=== PATIENT | male | born 1965 | race African-American/Black ===

== ENCOUNTER 2017-08-15 09:10 | Emergency (ER) | payer BC, OTHER | END 2017-08-15 10:28 | disposition home or self-care (01) | LOC: ER 09:10 | DX: M77.9 Enthesopathy, unspecified (principal); Z88.8 Allergy status to other drugs, medicaments and biological substances | CPT/HCPCS: 73610; 99284 ==

== ENCOUNTER 2018-05-17 19:50 | Emergency (ER) | payer BC, OTHER ==
[~2018-05-17] VITALS: Ht 180.3 cm; Wt 99.8 kg
[~2018-05-17 19:50] MED LIST: ACET325T9 PO; PRED20TA PO
[2018-05-17 20:27] VITALS: BP 163/88
[2018-05-17] MEDS ORDERED: ORPH100T PO (21:11)
[2018-05-17] MEDS ORDERED: IBUP-1007 PO (21:11)
--- NOTE | 2018-05-17 21:11 | PHYS DOC ---
Past Medical History Past Medical History: Hypertension Past Surgical History: Other Additional Past Surgical Histo: BILATERAL ANKLE FX, RT RADIAL NERVE, Alcohol Use: Rarely Drug Use: Marijuana Adult General Chief Complaint Chief Complaint: LOWER BACK PAIN OR INJURY HPI HPI Patient is a 53 year old male who presents with patient states yesterday he sneezed really hard and started having right lower back pain he rates a 5 out of 10. He states when he moves the pain is worse it is sharp shooting. It does not shoot down his leg but will radiate across his back times. He denies dysuria or fever or nausea or vomiting. Review of Systems Review of Systems Constitutional: Denies fever or chills [] Eyes: Denies change in visual acuity, redness, or eye pain [] HENT: Denies nasal congestion or sore throat [] Respiratory: Denies cough or shortness of breath [] Cardiovascular: No additional information not addressed in HPI [] GI: Denies abdominal pain, nausea, vomiting, bloody stools or diarrhea [] : Denies dysuria or hematuria [] Musculoskeletal: lower back pain or joint pain [] Integument: Denies rash or skin lesions [] Neurologic: Denies headache, focal weakness or sensory changes [] All other systems were reviewed and found to be within normal limits, except as documented in this note. Allergies Allergies Allergies Coded Allergies Type Severity Reaction Last Updated Verified amitriptyline Adverse Reaction Intermediate VISUAL DISTURBANCES 08/15/17 Yes pregabalin Adverse Reaction Intermediate BACK PAIN 08/15/17 Yes Physical Exam Physical Exam Constitutional: Well developed, well nourished, no acute distress, non-toxic appearance. [] HENT: Normocephalic, atraumatic, bilateral external ears normal, oropharynx moist, no oral exudates, nose normal. [] Eyes: PERRLA, EOMI, conjunctiva normal, no discharge. [] Neck: Normal range of motion, no tenderness, supple, no stridor. [] Cardiovascular:Heart rate regular rhythm, no murmur [] Lungs & Thorax: Bilateral breath sounds clear to auscultation [] Abdomen: Bowel sounds normal, soft, no tenderness, no masses, no pulsatile masses. [] Skin: Warm, dry, no erythema, no rash. [] Back: right lower tenderness, no CVA tenderness. [] Extremities: No tenderness, no cyanosis, no clubbing, ROM intact, no edema. [] Neurologic: Alert and oriented X 3, normal motor function, normal sensory function, no focal deficits noted. [] Psychologic: Affect normal, judgement normal, mood normal. [] Current Patient Data Vital Signs Vital Signs Date Time Temp Pulse Resp B/P (MAP) Pulse Ox O2 Delivery O2 Flow Rate FiO2 05/17/18 20:27 98.5 66 18 163/88 (113) 99 Room Air 98.5 EKG EKG [] Radiology/Procedures Radiology/Procedures [] Course & Med Decision Making Course & Med Decision Making Patient is a 53 year old male who presents with patient states yesterday he sneezed really hard and started having right lower back pain he rates a 5 out of 10. He states when he moves the pain is worse it is sharp shooting. It does not shoot down his leg but will radiate across his back times. He denies dysuria or fever or nausea or vomiting. Patient has no focal weaknesses, numbness or tingling. Alert and oriented. Ambulatory with steady gait. The right lower back is tender with palpation. Afebrile. Vital signs within normal limits. Lungs are clear to auscultation all lobes. Patient is told to follow-up with his primary care doctor this is most likely musculoskeletal. Patient is told to use a heating pad and take ibuprofen and also a prescription for muscle relaxer and [place]. Dragon Disclaimer Dragon Disclaimer This electronic medical record was generated, in whole or in part, using a voice recognition dictation system. Departure Departure Impression: Primary Impression: Muscle strain Disposition: HOME, SELF-CARE Condition: STABLE Referrals: UNKNOWN PCP NAME (PCP) Patient Instructions: Muscle Strain Additional Instructions: USE HEATING PACK AND MEDICATIONS PRESCRIBED. FOLLOW UP WITH YOUR PRIMARY CARE PHYSICIAN. Scripts Orphenadrine Citrate (ORPHENADRINE CITRATE) 100 Mg Tablet.er 1 TAB PO BID, #20 TAB Prov: CRISSY REAVES NURSE CHARGE RN 05/17/18 Ibuprofen (IBUPROFEN) 600 Mg Tablet 600 MG PO PRN Q6HRS PRN for INFLAMMATION, #20 TAB Prov: CRISSY REAVES NURSE CHARGE RN 05/17/18 Attending Signature Attending Signature I have reviewed the PA/SUPERVISOR LIQUEFACTION's note and plan of care. I was available for consultation as needed during the patient's visit in the emergency department. I agree with the clinical impression, plan, and disposition. CRISSY REAVES APRN May 17, 2018 21:11 RUDY ISRAEL DO May 19, 2018 14:27
== END 2018-05-17 21:27 | disposition home or self-care (01) ==
LOC: ER 19:50
DX: S39.012A Strain of muscle, fascia and tendon of lower back, initial encounter (principal); I10 Essential (primary) hypertension; Z88.8 Allergy status to other drugs, medicaments and biological substances; X58.XXXA Exposure to other specified factors, initial encounter; Y93.89 Activity, other specified; Y92.89 Other specified places as the place of occurrence of the external cause; Y99.8 Other external cause status
CPT/HCPCS: 99283